=== PATIENT | female | born 1990 | race Caucasian/White ===

== ENCOUNTER 2024-07-07 10:57 | Emergency (ER) | payer SELFPAY ==
[2024-07-07 11:00] VITALS: BP 126/86; PULSE 81; RESP 18; TEMP 36.7; O2SAT 98
--- NOTE | 2024-07-07 11:04 | ED_ITS ---
HPI - General Adult General Chief complaint: Psychiatric Symptoms Stated complaint: anxiety Time Seen by Provider: 07/07/24 11:02 History of Present Illness HPI narrative: Hansel is a 33F with a PMH of saniya's Dm Syndrome, polysubstance abuse, clean from opiates 8 years, but still uses cocaine, MJ and tobacco. She was brought into the ED via EMS. She was reportedly stopped by law enforcement as she was an endangered person. She left a note in [place] stating that she was not going to see her family again and she loved them then left with all her possessions in her car. She believes the cartel is after her and she is fleeing for her well being. Related Data Home Medications ?Medication ?Instructions ?Recorded ?Confirmed ?Last Taken ?Type No Home Medications 07/07/24 07/07/24 Unknown History Allergies Allergy/AdvReac Type Severity Reaction Status Date / Time amoxicillin Allergy Severe Unknown Verified 07/07/24 11:11 Penicillins Allergy Severe Unknown Verified 07/07/24 11:11 Sulfa (Sulfonamide Allergy Severe Unknown Verified 07/07/24 11:11 Antibiotics) Review of Systems 2 Review of Systems: All systems reviewed & are unremarkable except as noted in HPI and below PMFSH Social History Social History Substance use type: marijuana and crack/cocaine Exam 2 Const: General: cooperative, healthy appearing, comfortable, no acute distress, well developed, alert, awake and Physically active O rientation/consciousness: oriented to person, oriented to place and oriented to time HENMT: Head: normal to inspection, normocephalic and atraumatic Ears: h earing grossly normal bilaterally and external ears normal Face/Nose/Sinus: N ormal external nose present Eyes: General: appearance normal, both eyes and all related structures P eriorbital: periorbital findings normal Sclera: sclerae normal Pupils: E qual, round and reactive pupils present Neck: Neck: normal visual inspection Chest: Chest palpation & inspection: normal inspection of the chest Resp: Effort & Inspection: normal respiratory effort, able to speak in complete sentences and no respiratory distress Auscultation: clear to auscultation bilaterally Cardio: Jugular venous distension: no JVD Rate: regular rate Rhythm: r egular rhythm GI: Inspection: normal to inspection GI Palp: Yes Soft to palpation A uscultation: normal bowel sounds Skin: General skin exam: normal color and no rashes or lesions noted Neuro: General: oriented to person, oriented to place and oriented to time Cranial nerves: Yes Equal, round and reactive pupils present Extrem: General: normal to inspection Psych: Mental Status: mental status grossly normal Affect: Anxious affect present Attitude: cooperative Course Course Emergency Course: order labs. Labs WNL, [facility] contacted. Further history from father was gathered. It turns out she has had multiple psychiatric inpatient stays in the past year. She went off her meds, (sertraline and risperdone) in April. [facility] evaluated the patient and uncovered further delusions. We agreed that we thought she was a harm to herself and other. Paperwork for a non- voluntary hold was completed. When we told the patient she became very agitated. She screamed many vulgar statements, mainly derogatory towards men. She continues to state that the police guard and myself are being paid off by the cartel. She continues to state she needs to leave to protect her family. She then ripped off the camera and continued to be agitated. Additional law enforcement was called at 1520. 1500: Face to Face sitter was ordered for patient and staff safety Patient is medically cleared to transfer to psychiatric care Vital Signs Vital signs: Vital Signs Oxygen Delivery Room Air 07/07/24 10:57 Temperature 98.4 F 07/07/24 18:35 Pulse Rate 61 07/07/24 18:35 Respiratory Rate 18 07/07/24 18:35 Blood Pressure 107/69 07/07/24 18:35 Pulse Oximetry 98 07/07/24 18:35 Oxygen Delivery Room Air 07/07/24 18:35 Medical Decision Making Vital Signs Vital Signs: Vital Signs Oxygen Delivery Room Air 07/07/24 10:57 Temperature 98.4 F 07/07/24 18:35 Pulse Rate 61 07/07/24 18:35 Respiratory Rate 18 07/07/24 18:35 Blood Pressure 107/69 07/07/24 18:35 Pulse Oximetry 98 07/07/24 18:35 Oxygen Delivery Room Air 07/07/24 18:35 Lab Data 07/07/24 11:21 07/07/24 11:21 Labs: Lab Results 07/07/24 07/07/24 07/07/24 Range/Units 11:03 11:21 11:24 WBC 11.7 H (4.8-10.8) K/mm3 RBC 4.22 (4.20-5.40) M/mm3 Hgb 13.1 (12.0-15.0) g/dL Hct 37.9 (35.0-49.0) % MCV 89.8 (78.0-102.0) fL MCH 31.0 (27.0-31.0) pg MCHC 34.6 (32-36) g/dL RDW 12.7 (11.6-14.4) % Plt Count 324 (150-420) K/mm3 MPV 8.3 L (9.2-11.8) fl Immature Gran % (Auto) 0.4 H (0.0-0.0) % Neut % (Auto) 79.2 H (50.0-70.0) % Lymph % (Auto) 11.2 L (18.0-42.0) % Callahan % (Auto) 8.0 (2.0-11.0) % Eos % (Auto) 0.4 L (1.0-6.0) % Baso % (Auto) 0.8 (0.0-1.0) % Lymph # (Auto) 1.31 (1.10-4.50) K/mm3 Callahan # (Auto) 0.93 H (0.10-0.90) K/mm3 Eos # (Auto) 0.05 (0.02-0.50) K/mm3 Baso # (Auto) 0.09 (0.00-0.10) K/mm3 Abs Immat Gran (auto) 0.05 H (0.00-0.00) K/mm3 Absolute Neuts (auto) 9.24 H (1.70-7.20) K/mm3 Absolute Nucleated RBC 0.00 (0.00-0.00) K/mm3 Nucleated RBC % 0.0 (0-0.0) % Sodium 139 (136-145) mmol/L Potassium 4.0 (3.5-5.1) mmol/L Chloride 103 (98-108) mmol/L Carbon Dioxide 24 (21-32) mmol/L Anion Gap 12 (4-12) mmol/L BUN 9 (7-18) mg/dL Creatinine 0.89 (0.55-1.02) mg/dL Estim Creat Clear Calc 80 ml/min Estimated GFR > 60 (59 - ) Glucose 87 (70-99) mg/dL Calculated Osmolality 285 (285-295) mOsm/kg Calcium 8.9 (8.5-10.1) mg/dL Total Bilirubin 0.6 (0.00-1.00) mg/dL AST < 10 L (15-37) U/L ALT 18 (14-59) U/L Alkaline Phosphatase 62 (46-116) U/L Total Protein 6.5 (6.4-8.2) g/dL Albumin 3.8 (3.4-5.0) g/dL TSH (Reflex) 0.72 (0.36-3.74) u/IU/mL Urine Color Light yellow (Yellow) Urine Appearance Clear (Clear) Urine pH 6.0 (5.0-8.0) Ur Specific Beemer 1.025 H (1.010-1.020) Urine Protein Negative (Negative) Urine Glucose (UA) Negative (Negative) Urine Ketones 2+ H (Negative) Ur Blood (Man) 2+ H (Negative) Urine Nitrate Negative (Negative) Urine Bilirubin Negative (Negative) Urine Urobilinogen 0.2 (0.2-1.0) mg/dL Leukocyte Esterase Rfl Negative (Negative) ALBINA/UL Urine RBC 11-20 H (0-2) /hpf Urine WBC None seen (0-3) /hpf Ur Squamous Epith Cells Few (Few) /hpf Urine Bacteria 1+ H (None) /hpf Urine Test Negative Urine Opiates Screen Negative (Negative) Urine Methadone Screen Negative (Negative) Ur Barbiturates Screen Negative (Negative) Ur Phencyclidine Scrn Negative (Negative) Ur Amphetamine Screen Negative (Negative) U Benzodiazepines Scrn Negative (Negative) Urine Cocaine Screen Positive A (Negative) U Cannabinoids Screen Positive A (Negative) Ethyl Alcohol < 3 (0-6) mg/dL Influenza A (RT-PCR) Negative (Negative) Influenza B (RT-PCR) Negative (Negative) RSV (RT-PCR) Negative (Negative) SARS-CoV-2 RNA (RT-PCR) Negative (Negative) Discharge Plan Discharge Clinical Impression: Psychosis Patient Disposition: Psychiatric Hosp Condition: Serious Patient Language: Belarusian Prescriptions: No Action No Home Medications Follow-up/Referrals: UNKNOWN,DOCTOR [Primary Care Provider] -
[2024-07-07 11:18] LABS: Add Urine Microscopic? YES; Appearance Urine Clear (Clear); Bilirubin Urine Negative (Negative); Blood Urine 2+ (Negative); Color Urine Light Yellow (Yellow); Glucose Urine UA Negative (Negative); Ketones Urine 2+ (Negative); Leukocyte Esterase Ur Negative LEU/UL (Negative); Nitrate Urine Negative (Negative); Protein Urine Negative (Negative); Specific Grav Ur 1.025 (1.010-1.020); Urobilinogen Urine 0.2 mg/dL (0.2-1.0)
[2024-07-07 11:24] LABS: Amphetamine Screen Urine Negative (Negative); Barbiturate Screen Urine Negative (Negative); Benzodiazepines Screen Urine Negative (Negative); Cannabinoid Screen Urine Positive (Negative); Cocaine Screen Urine Positive (Negative); Methadone Screen Urine Negative (Negative); Opiate Screen Urine Negative (Negative); Phencyclidine Screen Urine Negative (Negative)
[2024-07-07 11:25] LABS: Bacteria Urine 1+ /hpf; Squamous Epithelial Cell Urine Few /hpf (Few); WBC Urine None seen /hpf (0-3)
[2024-07-07 11:26] LABS: Pregnancy On Board Control Positive; Urine Pregnancy Test Negative
[2024-07-07 11:28] LABS: Basophils Absolute Auto 0.09 K/mm3 (0.00-0.10); Basophils Percent Auto 0.8 % (0.0-1.0); Eosinophils Absolute Auto 0.05 K/mm3 (0.02-0.50); Eosinophils Percent Auto 0.4 % (1.0-6.0); Hematocrit 37.9 % (35.0-49.0); Hemoglobin 13.1 g/dL (12.0-15.0); Immature Granulocyte Absolute 0.05 K/mm3 (0.00-0.00); Immature Granulocyte Percent A 0.4 % (0.0-0.0); Lymphocytes Absolute Auto 1.31 K/mm3 (1.10-4.50); Lymphocytes Percent Auto 11.2 % (18.0-42.0); Mean Corpuscular HGB Conc 34.6 g/dL (32-36); Mean Corpuscular Volume 89.8 fL (78.0-102.0); Mean Platelet Volume 8.3 fl (9.2-11.8); Monocytes Absolute Auto 0.93 K/mm3 (0.10-0.90); Neutrophils Absolute Auto 9.24 K/mm3 (1.70-7.20); Neutrophils Percent Auto 79.2 % (50.0-70.0); Platelet Count Result 324 K/mm3 (150-420); Red Blood Count 4.22 M/mm3 (4.20-5.40); Red Cell Distribution Width 12.7 % (11.6-14.4); White Blood Count 11.7 K/mm3 (4.8-10.8)
[2024-07-07 11:55] LABS: Alanine Aminotransferase 18 U/L (14-59); Albumin Level 3.8 g/dL (3.4-5.0); Alkaline Phosphatase 62 U/L (46-116); Anion Gap 12 mmol/L (4-12); Aspartate Amino Transferase < 10 U/L (15-37); Bilirubin,Total 0.6 mg/dL (0.00-1.00); Blood Urea Nitrogen 9 mg/dL (7-18); Calcium 8.9 mg/dL (8.5-10.1); Carbon Dioxide 24 mmol/L (21-32); Chloride 103 mmol/L (98-108); Estimated CRCL calculation 80 ml/min; Estimated Glomerular Filt Rate > 60; Glucose 87 mg/dL (70-99); Osmolality Calculated 285 mOsm/kg (285-295); Sodium 139 mmol/L (136-145); Total Protein 6.5 g/dL (6.4-8.2)
[2024-07-07 11:56] LABS: Ethanol < 3 mg/dL (0-6); Thyroid Stimulating Hormone Reflex 0.72 u/IU/mL (0.36-3.74)
[2024-07-07 12:12] LABS: SARS-CoV-2 RNA PCR Negative (Negative)
--- NOTE | 2024-07-07 12:12 | PC.NURSE ---
PT DECLINES LUNCH AT THIS TIME. BLANKET AND SODA WERE PROVIDED. PT IS LYING ON STRETCHER, CALM. AWAITING ARRIVAL OF [facility].
[2024-07-07 12:17] LABS: Influenza A QL RT-PCR Negative (Negative); Influenza B QL RT-PCR Negative (Negative); RSV RNA, RT-PCR Negative (Negative)
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
--- NOTE | 2024-07-07 13:20 | PC.NURSE ---
SACHA RAMOS IS AT BEDSIDE SPEAKING WITH PT AT THIS TIME.
--- NOTE | 2024-07-07 13:56 | PC.NURSE ---
PT IS LYING ON STRETCHER IN EXAM ROOM AWAITING [facility] DECISION. PT IS CALM AND COOPERATIVE. WILL CONTINUE TO MONITOR.
--- NOTE | 2024-07-07 14:39 | PC.NURSE ---
pt is currently eating sandwich tray at this time. sitter is at bedside due to [address] evaluation for high risk behavior. Pt has involuntary petition completed on chart at this time. Belongings are secured. Will continue to monitor.
[2024-07-07 16:00] VITALS: BP 148/82; PULSE 82; RESP 16; TEMP 36.7; O2SAT 98
[2024-07-07] MEDS: HALOPERIDOL LACTATE 5 MG/ML VIAL IM (16:02)
[2024-07-07] MEDS: LORazepam INJ (*CRX) 2 MG/ML VIAL IV PUSH (16:02)
[2024-07-07] MEDS: diphenhydrAMINE HCl INJ 50 MG/ML VIAL IM (16:03)
[2024-07-07 16:07] VITALS: BP 148/82; PULSE 82; RESP 18; TEMP 36.8; O2SAT 98
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
--- NOTE | 2024-07-07 17:19 | PC.NURSE ---
THE REST OF THE PAPERWORK, INVOLUNTARY FORM AND FURTHER NOTES WERE FAXED TO [facility], SHE HAS BEEN ACCEPTED TO [facility] UNDER DR KESSLER, AWAITING ROOM ASSIGNMENT AND RETURN CALL FROM RN FOR REPORT. PT IS RESTING WITH SITTER AT BEDSIDE. NAD NOTED. WILL CONTINUE TO MONITOR.
--- NOTE | 2024-07-07 18:12 | PC.NURSE ---
PT IS RESTING ON STRETCHER WITH SITTER AT BEDSIDE. PT IS AWAITING ROOM ASSIGNMENT AT [facility] AT THIS TIME. INVOLUNTARY WAS RE-FAXED. WILL CONTINUE TO MONITOR.
[2024-07-07 18:35] VITALS: BP 107/69; PULSE 61; RESP 18; TEMP 36.9; O2SAT 98
--- NOTE | 2024-07-07 19:20 | PC.NURSE ---
patient report received from KAREN Xiong for continuation of care on security shift supervisor. patient accepted at [facility], RN awaiting nurse call from facility for nurse to nurse report prior to patient departure. patient resting on bed in ED 5 with sitter at bedside for safety. patient calm at this time. RN monitoring.
--- NOTE | 2024-07-07 19:30 | PC.NURSE ---
pt is sleeping in exam room, arouses to verbal stimuli. sitter at bedside. pt is awaiting [facility]. report to KAREN Oconnor.
== END 2024-07-07 20:45 ==
PROVIDERS: Emergency Provider Family Medicine
DX: F29 Unspecified psychosis not due to a substance or known physiological condition (principal); F12.90 Cannabis use, unspecified, uncomplicated; F14.90 Cocaine use, unspecified, uncomplicated; Z11.52 Encounter for screening for COVID-19
CPT/HCPCS: 36415; 80053; 80307; 81001; 81025; 82077; 84443; 85025; 87637; 96372; 96374; 99285; J1200; J1630; J2060